=== PATIENT | female | born 1980 | race American Indian/Alaskan Native ===

== ENCOUNTER 2018-09-17 15:44 | Emergency (ER) | payer SELFPAY ==
[~2018-09-17] VITALS: Ht 170.2 cm; Wt 90.7 kg
[2018-09-17 16:00] VITALS: BP 165/104
== END 2018-09-17 16:45 | disposition home or self-care (01) ==
LOC: ER 15:44
DX: S61.012A Laceration without foreign body of left thumb without damage to nail, initial encounter (principal); W26.0XXA Contact with knife, initial encounter; Y93.89 Activity, other specified; Y99.8 Other external cause status; Y92.89 Other specified places as the place of occurrence of the external cause
CPT/HCPCS: 12001

== ENCOUNTER 2021-02-15 10:14 | Emergency (ER) | payer MEDICAID, OTHER ==
[~2021-02-15] VITALS: Ht 167.6 cm; Wt 79.4 kg
[2021-02-15 10:17] VITALS: BP 218/121
[2021-02-15] MEDS ORDERED: cloNIDine HCL 0.1 MG TAB ONE (10:21)
[2021-02-15] MEDS ORDERED: cloNIDine HCL 0.1 MG TAB PO ONE ×2 (10:45)
== END 2021-02-15 11:40 | disposition home or self-care (01) ==
LOC: ER 10:14
DX: T16.1XXA Foreign body in right ear, initial encounter (principal); K02.9 Dental caries, unspecified; I10 Essential (primary) hypertension; X58.XXXA Exposure to other specified factors, initial encounter; Y93.89 Activity, other specified; Y92.89 Other specified places as the place of occurrence of the external cause; Y99.8 Other external cause status
CPT/HCPCS: 69200